=== PATIENT | male | born 1985 | race African-American/Black ===

== ENCOUNTER 2018-09-15 06:29 | Emergency (ER) | payer SELFPAY ==
[~2018-09-15] VITALS: Ht 188 cm; Wt 126.4 kg
[2018-09-15 06:35] VITALS: Ht 188 cm; Wt 126.4 kg
[2018-09-15] MEDS ORDERED: FLUTICASONE PRO16 GM NASAL (06:51)
[2018-09-15] MEDS ORDERED: AUGMENTIN 875-11 TAB PO (06:51)
[2018-09-15 07:28] VITALS: BP 112/63
== END 2018-09-15 07:29 | disposition home or self-care (01) ==
LOC: D.ER 06:29
DX: J01.90 Acute sinusitis, unspecified (principal)

== ENCOUNTER 2018-12-08 15:02 | Emergency (ER) | payer MEDICAID ==
[~2018-12-08 15:02] MED LIST: AUGMENTIN 875-11 TAB PO; FLUTICASONE PRO16 GM NASAL
[2018-12-08 15:05] VITALS: BMI 35.7
[2018-12-08] MEDS ORDERED: TALWIN NX1 TAB PO (15:41)
[2018-12-08] MEDS ORDERED: CLEOCIN HCL300 MG PO (15:41)
[2018-12-08 16:41] VITALS: BP 113/62
== END 2018-12-08 16:37 | disposition home or self-care (01) ==
LOC: D.ER 15:02
DX: K04.7 Periapical abscess without sinus (principal); K08.89 Other specified disorders of teeth and supporting structures

== ENCOUNTER 2018-12-09 20:24 | Emergency (ER) | payer MEDICAID ==
[2018-12-08 15:05] VITALS: BMI 35.7
[~2018-12-09 20:24] MED LIST changes: +CLEOCIN HCL300 MG PO; +TALWIN NX1 TAB PO
== END 2018-12-09 22:16 | disposition home or self-care (01) ==
LOC: D.ER 20:24
DX: K04.7 Periapical abscess without sinus (principal)

== ENCOUNTER 2018-12-10 11:41 | Emergency (ER) | payer MEDICAID | END 2018-12-10 12:22 | disposition left against medical advice (07) | LOC: D.ER 11:41 | DX: L02.91 Cutaneous abscess, unspecified (principal) ==